=== PATIENT | male | born 1975 | race African-American/Black ===

== ENCOUNTER 2016-11-10 13:05 | Inpatient (IN) | payer OTHER ==
[~2016-11-10] VITALS: Ht 188 cm; Wt 92.1 kg
[~2016-11-10 13:05] MED LIST: ADVIL,NUPRIN,M200 MG PO; ALPRAZOLAM0.5 MG PO; AMLODIPINE BESY10 MG PO; AMOXICILLIN875 MG PO; APRESOLINE50 MG PO; ASPIR-LOW81 MG PO; ATENOLOL100 MG PO; ATORVASTATIN CA40 MG PO; AUGMENTIN875 MG PO; BENTYL10 MG PO; BENTYL20 MG PO; CARVEDILOL6.25 MG PO; CATAPRES-TTS 31 EACH TD; CENTRUM MEN'S1 EACH PO; CLEOCIN300 MG PO; CLONIDINE1 EAC2 TD; COLACE100 MG PO; DILAUDID4 MG PO; DONNATAL1 TABLET PO; DULOXETINE HCL30 MG PO; ENDOCET 5-3251 EACH PO; ERYTHROMYCIN250 M1 PO; ESGIC 50-325-41 EAC1 PO; FAMOTIDINE40 MG PO; FIORICET,ESG1 TABLET PO; FLAGYL500 MG PO; FLEXERIL10 MG PO; GABAPENTIN300 MG PO; GLIPIZIDE5 MG PO; GLUCOPHAGE500 MG PO; HUMALOG100 UNIT/2 SC; HYCODAN SYRUP480 ML PO; IBUPROFEN400 MG PO; IBUPROFEN800 MG PO; LEVEMIR FL100 UNIT/1 SC; LIDOCAINE20 MG/1 M5 PO; LISINOPRIL10 MG PO; LISINOPRIL20 MG PO; LISINOPRIL40 MG PO; LISINOPRIL5 MG PO; LOPRESSOR25 MG PO; LOPRESSOR50 MG PO; MEDROL DOSEPAK4 MG PO; METFORMIN HCL1000 MG PO; METFORMIN HCL500 MG PO; METOCLOPRAMIDE10 MG PO; MIRALAX17 GM PO; MOTRIN600 MG PO; MOTRIN800 MG PO; NAPROSYN500 MG PO; NICOTINE PATCH1 EAC2 TD; NORCO 7.5/321 TABLET PO; ONDANSETRON HCL8 MG PO; PANTOPRAZOLE SO40 MG PO; PEPCID40 MG PO; PERCOCET 5/31 TABLET PO; PHENERGAN25 MG PR; PLAVIX75 MG PO; PRAVASTATIN SOD40 MG PO; PROMETHAZINE HC25 M1 PO; PROMETHAZINE HC50 M1 PO; PROTONIX40 MG PO; PROVENTIL,2.5 MG/3 M IH; REGLAN10 MG PO; REGLAN5 MG PO; SERTRALINE HCL50 MG PO; TOPIRAMATE25 MG PO; TOUJEO SOL300 UNIT/1 SC; TRAMADOL HCL50 MG PO; TRIBENZOR 40-11 EAC1 PO; ULTRAM50 MG PO; VIAGRA25 MG PO; VIAGRA50 MG PO; VICODIN 5-3001 EACH PO; XANAX0.25 MG PO; XANAX0.5 MG PO; ZESTORETIC 20-1 EAC1 PO; ZESTRIL,PRINIVIL5 MG PO; ZITHROMAX Z-PA250 MG PO; ZOFRAN ODT4 MG PO; ZOFRAN4 MG PO
[2016-11-10 14:09] LABS: HEMATOCRIT 39.4 % (38.0-50.0); MCH 29.2 PG (29.0-34.0); MCV 91.2 FL (86-99); MEAN PLAT.VOLUME 10.9 uM^3 (9.0-12.4); PLATELET COUNT 180 K/uL (156-360); RBC DIS.WIDTH-CV 13.2 % (11.8-14.6); RBC DIS.WIDTH-SD 44.5 % (39-53); RED BLOOD COUNT 4.32 M/uL (4.00-5.50); WHITE BLOOD COUNT 17.1 K/uL (4.1-10.2)
[2016-11-10 14:19] LABS: CHLORIDE 109 mEq/L (99-109); POTASSIUM 4.6 mEq/L (3.7-5.4); SODIUM 141 mEq/L (136-147)
[2016-11-10 14:22] LABS: ANION GAP 13 MEQ/L (2-14)
[2016-11-10 14:26] LABS: UREA NITROGEN (BUN) 33 mg/dL (9-23)
[2016-11-10 14:31] LABS: GLUCOSE 407 mg/dL (70-99)
[2016-11-10 14:46] LABS: GFR ESTIMATE (CALCULATED) 45 mL/min/
[2016-11-10 14:47] LABS: CARBON DIOXIDE (BICARBONATE) 23.2 MEQ/L (20-31)
[2016-11-10 17:41] LABS: POINT-OF-CARE METER ID UU14100415
[2016-11-10] MEDS ORDERED: ATORVASTATIN CA80 MG PO (18:21)
[2016-11-10] MEDS ORDERED: VIAGRA50 MG PO (18:22)
[2016-11-10] MEDS ORDERED: LISINOPRIL10 MG PO (18:23)
[2016-11-10] MEDS ORDERED: METOCLOPRAMIDE10 MG PO (18:27)
[2016-11-10] MEDS ORDERED: TOPIRAMATE100 MG PO (18:32)
[2016-11-10 19:33] LABS: ADD MIUA? YES; BILIRUBIN NEGATIVE; BLOOD NEGATIVE; COLOR YELLOW ((YELLOW)); GLUCOSE (STRIP) >=500; KETONES NEGATIVE; LEUKOCYTES NEGATIVE; NITRITE NEGATIVE; PROTEIN (STRIP) 100; SPECIFIC GRAVITY 1.022 (1.000-1.030); UROBILINOGEN 0.2 MG/DL (0.2-1.0)
[2016-11-10 20:01] LABS: BACTERIA NONE SEEN /HPF; EPITHELIAL CELLS RARE /HPF; HYALINE CASTS 0-5 /LPF; MUCUS NONE SEEN /LPF; RED BLOOD CELLS 0-5 /HPF (0-5); UCUL ADDED? NO; WHITE BLOOD CELLS 0-5 /HPF (0-5)
[2016-11-10 20:19] LABS: ABS NEUTROPHIL COUNT 15.2; ANISOCYTOSIS 1+; BASOPHILS 0.9 %; BURR CELLS 2+; EOSINOPHIL ABS CT 0; LYMPHOCYTES 4.3 % (15.0-45.0); MYELOCYTES 0.9 %; PLAT.SUFFICIENCY ADEQUATE; POIKILOCYTOSIS 2+; SEG.NEUTROPHILS 88.7 % (46.0-76.0); SMUDGE CELLS 3.5
[2016-11-10 20:38] VITALS: BP 142/78
[2016-11-10 21:19] LABS: POINT-OF-CARE METER ID UU14188625
[2016-11-10 23:35] VITALS: BP 124/66
[2016-11-11 03:31] VITALS: BP 146/80
[2016-11-11 07:34] LABS: HEMATOCRIT 32.7 % (38.0-50.0); MCH 28.3 PG (29.0-34.0); MCHC 30.9 G/DL (30.0-36.0); MCV 91.6 FL (86-99); MEAN PLAT.VOLUME 11.2 uM^3 (9.0-12.4); PLATELET COUNT 160 K/uL (156-360); RBC DIS.WIDTH-CV 13.2 % (11.8-14.6); RBC DIS.WIDTH-SD 44.6 % (39-53); RED BLOOD COUNT 3.57 M/uL (4.00-5.50)
[2016-11-11 08:18] LABS: ANION GAP 8 MEQ/L (2-14); CHLORIDE 111 MEQ/L (99-109); POTASSIUM 4.1 MEQ/L (3.7-5.4); SAMPLE HEMOLYSIS CHECK 0; SAMPLE ICTERIC CHECK 0; SAMPLE LIPEMIA CHECK 0; SODIUM 142 MEQ/L (136-147)
[2016-11-11 08:23] LABS: GFR ESTIMATE (CALCULATED) > 59 mL/min/; UREA NITROGEN (BUN) 28 mg/dL (9-23)
[2016-11-11 08:24] VITALS: BP 170/93
[2016-11-11 08:24] LABS: GLUCOSE 159 mg/dL (70-99)
[2016-11-11 15:29] VITALS: BP 153/97
[2016-11-11 19:36] VITALS: BP 141/91
[2016-11-12 00:39] VITALS: BP 145/95
[2016-11-12 03:29] VITALS: BP 144/86
[2016-11-12 07:17] VITALS: BP 151/77
[2016-11-12 07:58] LABS: ANION GAP 11 MEQ/L (2-14); CHLORIDE 109 MEQ/L (99-109); GFR ESTIMATE (CALCULATED) > 59 mL/min/; GLUCOSE 193 mg/dL (70-99); POTASSIUM 4.5 MEQ/L (3.7-5.4); SAMPLE HEMOLYSIS CHECK 0; SAMPLE ICTERIC CHECK 0; SAMPLE LIPEMIA CHECK 0; SODIUM 141 MEQ/L (136-147); UREA NITROGEN (BUN) 24 mg/dL (9-23)
[2016-11-12 08:09] LABS: Estimated Average Glucose 295 mg/dL (70-123); HEMOGLOBIN A1c (GLYCOHEMOGLOB) 11.9 % HGB (Below 5.7)
[2016-11-12] MEDS ORDERED: TOPIRAMATE100 MG PO (09:49)
[2016-11-12 11:02] VITALS: BP 147/88
[2016-11-12 11:07] LABS: POINT-OF-CARE METER ID UU14174225
== END 2016-11-12 12:15 | disposition home or self-care (01) | DRG 78 ==
LOC: EME 13:05 → EDOF 19:04 → 5SOUTH 19:04 → EDOF 20:03 → 5SOUTH 20:23
PROVIDERS: Emergency Medicine; Hospitalist; Nurse Practitioner Adult Health
DX: I67.4 Hypertensive encephalopathy (principal); E87.2 Acidosis; I16.0 Hypertensive urgency; I12.9 Hypertensive chronic kidney disease with stage 1 through stage 4 chronic kidney disease, or unspecified chronic kidney disease; N18.3 Chronic kidney disease, stage 3 (moderate); E11.65 Type 2 diabetes mellitus with hyperglycemia; K31.84 Gastroparesis; E11.22 Type 2 diabetes mellitus with diabetic chronic kidney disease; F32.9 Major depressive disorder, single episode, unspecified; F41.9 Anxiety disorder, unspecified; E11.40 Type 2 diabetes mellitus with diabetic neuropathy, unspecified; F17.210 Nicotine dependence, cigarettes, uncomplicated
CPT/HCPCS: 70450; 70551; 71010; 80048; 81003; 82010; 82803; 82948; 83036; 85007; 85027; 93005; 99281; 99285; J1170; J1200; J1815; J1885; J2405; J2765; J7030

== ENCOUNTER 2017-01-10 19:16 | Observation (INO) | payer OTHER ==
[~2017-01-10] VITALS: Ht 188 cm; Wt 98.1 kg
[~2017-01-10 19:16] MED LIST changes: +ATORVASTATIN CA80 MG PO; +TOPIRAMATE100 MG PO
[2017-01-10 19:42] LABS: HEMATOCRIT 40.2 % (38.0-50.0); MCH 29.4 PG (29.0-34.0); MCHC 31.1 G/DL (30.0-36.0); MCV 94.6 FL (86-99); MEAN PLAT.VOLUME 11.1 uM^3 (9.0-12.4); PLATELET COUNT 212 K/uL (156-360); RBC DIS.WIDTH-CV 13.5 % (11.8-14.6); RED BLOOD COUNT 4.25 M/uL (4.00-5.50)
[2017-01-10 19:51] LABS: CHLORIDE 111 mEq/L (99-109); SODIUM 144 mEq/L (136-147)
[2017-01-10 19:53] LABS: GLUCOSE 363 mg/dL (70-99)
[2017-01-10 19:54] LABS: ANION GAP 18 MEQ/L (2-14); INTER. NORMALIZED RATIO 1.1; PROTHROMBIN TIME 11.4 (9.2-11.2); PTT 26.6 (25-32)
[2017-01-10 19:57] LABS: GFR ESTIMATE (CALCULATED) 45 mL/min/; UREA NITROGEN (BUN) 30 mg/dL (9-23)
[2017-01-10 20:02] LABS: TROP-I INTERPRETATION NEGATIVE; TROPONIN-I < 0.01 ng/mL (0.0-0.30)
[2017-01-10] MEDS ORDERED: ALPRAZOLAM0.5 MG PO (22:44)
[2017-01-10] MEDS ORDERED: PANTOPRAZOLE SO40 MG PO (22:47)
[2017-01-10] MEDS ORDERED: TOPIRAMATE200 MG PO (22:48)
[2017-01-10] MEDS ORDERED: SERTRALINE HCL50 MG PO (22:48)
[2017-01-10 23:38] LABS: CARBON DIOXIDE (BICARBONATE) 21.4 MEQ/L (20-31)
[2017-01-10 23:43] LABS: CHLORIDE 115 mEq/L (99-109); POTASSIUM 5.4 mEq/L (3.7-5.4); SODIUM 144 mEq/L (136-147)
[2017-01-10 23:44] LABS: MAGNESIUM 1.6 mg/dL (1.3-2.7)
[2017-01-10 23:46] LABS: GLUCOSE 271 mg/dL (70-99)
[2017-01-10 23:47] LABS: ANION GAP 12 MEQ/L (2-14)
[2017-01-10 23:48] LABS: TOTAL BILIRUBIN 0.2 mg/dL (0.0-1.0)
[2017-01-10 23:49] LABS: ALKALINE PHOSPHATASE 69 IU/L (3-129)
[2017-01-10 23:50] LABS: GFR ESTIMATE (CALCULATED) 47 mL/min/
[2017-01-10 23:51] LABS: UREA NITROGEN (BUN) 32 mg/dL (9-23)
[2017-01-10 23:52] LABS: POINT-OF-CARE METER ID UU13113702; POINT-OF-CARE USER ID 608261302
[2017-01-11 00:49] VITALS: BP 125/73
[2017-01-11 04:43] VITALS: BP 139/68
[2017-01-11 04:55] LABS: POINT-OF-CARE METER ID UU13113831
[2017-01-11 05:17] LABS: CARBON DIOXIDE (BICARBONATE) 22.3 MEQ/L (20-31)
[2017-01-11 05:28] LABS: CHLORIDE 117 mEq/L (99-109); POTASSIUM 4.4 mEq/L (3.7-5.4); SODIUM 145 mEq/L (136-147)
[2017-01-11 05:31] LABS: ANION GAP 8 MEQ/L (2-14)
[2017-01-11 05:32] LABS: TOTAL BILIRUBIN 0.2 mg/dL (0.0-1.0)
[2017-01-11 05:33] LABS: ALKALINE PHOSPHATASE 60 IU/L (3-129)
[2017-01-11 05:34] LABS: GFR ESTIMATE (CALCULATED) 47 mL/min/
[2017-01-11 05:35] LABS: UREA NITROGEN (BUN) 34 mg/dL (9-23)
[2017-01-11 05:40] LABS: GLUCOSE 108 mg/dL (70-99)
[2017-01-11 05:59] LABS: POINT-OF-CARE METER ID UU13113831
[2017-01-11 06:50] VITALS: BP 115/59
[2017-01-11 11:05] VITALS: BP 124/75
[2017-01-11 12:01] LABS: POINT-OF-CARE METER ID UU13113831
[2017-01-11 13:09] LABS: HEMATOCRIT 32.2 % (38.0-50.0); MCH 30.4 PG (29.0-34.0); MCHC 31.7 G/DL (30.0-36.0); MCV 96.1 FL (86-99); MEAN PLAT.VOLUME 11.2 uM^3 (9.0-12.4); PLATELET COUNT 150 K/uL (156-360); RBC DIS.WIDTH-CV 13.6 % (11.8-14.6); RBC DIS.WIDTH-SD 48.1 % (39-53)
[2017-01-11 13:11] LABS: RED BLOOD COUNT 3.35 M/uL (4.00-5.50); WHITE BLOOD COUNT 13.6 K/uL (4.1-10.2)
[2017-01-11 13:18] LABS: ADD MIUA? YES; BILIRUBIN NEGATIVE; BLOOD NEGATIVE; COLOR YELLOW ((YELLOW)); GLUCOSE (STRIP) 50; KETONES 5; LEUKOCYTES NEGATIVE; NITRITE NEGATIVE; PROTEIN (STRIP) 30; SPECIFIC GRAVITY 1.017 (1.000-1.030); UROBILINOGEN 0.2 MG/DL (0.2-1.0)
[2017-01-11 13:25] LABS: BACTERIA NONE SEEN /HPF; EPITHELIAL CELLS 1+ /HPF; MUCUS TRACE /LPF; RED BLOOD CELLS 0-5 /HPF (0-5); UCUL ADDED? NO
[2017-01-11] MEDS ORDERED: LEVEMIR100 UNIT/2 SC (13:40)
[2017-01-11] MEDS ORDERED: NOVOLOG 10100 UNITS/ SC (13:40)
[2017-01-12] MEDS ORDERED: TOUJEO SOL300 UNIT/1 SC (12:50)
[2017-01-12] MEDS ORDERED: ZOFRAN ODT8 MG PO (12:53)
[2017-01-12] MEDS ORDERED: FAMOTIDINE20 MG PO (12:53)
[2017-01-12] MEDS ORDERED: HUMALOG100 UNIT/1 SC (12:58)
== END 2017-01-11 14:49 | disposition home or self-care (01) ==
LOC: EME 19:16 → EDOF 22:55 → 5WEST 22:55
PROVIDERS: Emergency Medicine; Internal Medicine; Physician Assistant Medical; Student in an Organized Health Care Education/Training Program
DX: I67.4 Hypertensive encephalopathy (principal); N17.9 Acute kidney failure, unspecified; E87.5 Hyperkalemia; E11.65 Type 2 diabetes mellitus with hyperglycemia; G43.909 Migraine, unspecified, not intractable, without status migrainosus; Z86.73 Personal history of transient ischemic attack (TIA), and cerebral infarction without residual deficits; Z79.4 Long term (current) use of insulin; I69.328 Other speech and language deficits following cerebral infarction; I69.398 Other sequelae of cerebral infarction; R47.81 Slurred speech; R26.2 Difficulty in walking, not elsewhere classified; G93.89 Other specified disorders of brain; E11.43 Type 2 diabetes mellitus with diabetic autonomic (poly)neuropathy; K31.84 Gastroparesis; E11.40 Type 2 diabetes mellitus with diabetic neuropathy, unspecified; E11.22 Type 2 diabetes mellitus with diabetic chronic kidney disease; I12.9 Hypertensive chronic kidney disease with stage 1 through stage 4 chronic kidney disease, or unspecified chronic kidney disease; N18.9 Chronic kidney disease, unspecified; Z91.14 Patient's other noncompliance with medication regimen; E87.2 Acidosis; E83.42 Hypomagnesemia; K21.9 Gastro-esophageal reflux disease without esophagitis
CPT/HCPCS: 70450; 71010; 80048; 80053; 81003; 82010; 82803; 82948; 83735; 84484; 85027; 85610; 85730; 93005; 99281; 99285; G0378; J0780; J1200; J1650; J1815; J1885; J2405; J7030

== ENCOUNTER 2017-01-12 07:56 | Observation (INO) | payer OTHER ==
[~2017-01-12] VITALS: Ht 188 cm; Wt 91.9 kg
[~2017-01-12 07:56] MED LIST changes: +LEVEMIR100 UNIT/2 SC; +NOVOLOG 10100 UNITS/ SC; +TOPIRAMATE200 MG PO
[2017-01-12 08:34] LABS: BASOPHIL COUNT 0.1 K/uL (0-0.1); EOSINOPHIL (%) 1.2 % (0-5); EOSINOPHIL COUNT 0.2 K/uL (0-0.3); HEMATOCRIT 39.1 % (38.0-50.0); IMMATURE GRANULOCYTE (%) 0.6 % (0.0-0.7); IMMATURE GRANULOCYTE COUNT 0.1 K/uL; INSTRUMENT ABS NEUTROPHIL CT 12.3 K/uL; LYMPHOCYTE COUNT 2.6 K/uL (1.0-2.8); MCHC 30.7 G/DL (30.0-36.0); MCV 94.4 FL (86-99); MEAN PLAT.VOLUME 10.9 uM^3 (9.0-12.4); MONOCYTE (%) 6.7 % (3-12); MONOCYTE COUNT 1.1 K/uL (0-0.8); NEUTROPHIL (%) 75.2 % (45-76); NEUTROPHIL COUNT 12.3 K/uL (1.8-6.4); PLATELET COUNT 177 K/uL (156-360); RBC DIS.WIDTH-CV 13.4 % (11.8-14.6); RBC DIS.WIDTH-SD 46.6 % (39-53); RED BLOOD COUNT 4.14 M/uL (4.00-5.50); WHITE BLOOD COUNT 16.3 K/uL (4.1-10.2)
[2017-01-12 08:42] LABS: CHLORIDE 114 mEq/L (99-109); POTASSIUM 4.5 mEq/L (3.7-5.4); SODIUM 144 mEq/L (136-147)
[2017-01-12 08:44] LABS: INTER. NORMALIZED RATIO 1.1; PROTHROMBIN TIME 11.4 (9.2-11.2); PTT 27.8 (25-32)
[2017-01-12 08:45] LABS: ANION GAP 13 MEQ/L (2-14); GLUCOSE 183 mg/dL (70-99)
[2017-01-12 08:48] LABS: GFR ESTIMATE (CALCULATED) 50 mL/min/
[2017-01-12 08:49] LABS: UREA NITROGEN (BUN) 23 mg/dL (9-23)
[2017-01-12 08:54] LABS: TROP-I INTERPRETATION NEGATIVE; TROPONIN-I 0.01 ng/mL (0.0-0.30)
[2017-01-12] MEDS ORDERED: TOUJEO SOL300 UNIT/1 SC (12:50)
[2017-01-12] MEDS ORDERED: ZOFRAN ODT8 MG PO (12:53)
[2017-01-12] MEDS ORDERED: FAMOTIDINE20 MG PO (12:53)
[2017-01-12] MEDS ORDERED: HUMALOG100 UNIT/1 SC (12:58)
[2017-01-12 13:54] VITALS: BP 159/91
[2017-01-12 15:15] LABS: TROP-I INTERPRETATION NEGATIVE; TROPONIN-I < 0.01 ng/mL (0.0-0.30)
[2017-01-12 16:13] VITALS: BP 129/80
[2017-01-12 16:44] LABS: POINT-OF-CARE METER ID UU14162513
[2017-01-12 21:26] LABS: POINT-OF-CARE METER ID UU14162513
[2017-01-12 21:52] LABS: TROP-I INTERPRETATION NEGATIVE; TROPONIN-I < 0.01 ng/mL (0.0-0.30)
[2017-01-13] VITALS (7 sets, daily range): BP systolic 124–178; BP diastolic 72–107
[2017-01-13 06:36] LABS: ANION GAP 12 MEQ/L (2-14); CHLORIDE 111 MEQ/L (99-109); GFR ESTIMATE (CALCULATED) > 59 mL/min/; GLUCOSE 145 mg/dL (70-99); POTASSIUM 3.9 MEQ/L (3.7-5.4); SAMPLE HEMOLYSIS CHECK 0; SAMPLE ICTERIC CHECK 0; SAMPLE LIPEMIA CHECK 0; SODIUM 141 MEQ/L (136-147); UREA NITROGEN (BUN) 25 mg/dL (9-23)
[2017-01-13 07:54] LABS: BASOPHIL COUNT 0.1 K/uL (0-0.1); EOSINOPHIL (%) 0.7 % (0-5); EOSINOPHIL COUNT 0.1 K/uL (0-0.3); HEMATOCRIT 31.9 % (38.0-50.0); IMMATURE GRANULOCYTE (%) 0.4 % (0.0-0.7); IMMATURE GRANULOCYTE COUNT 0.1 K/uL; INSTRUMENT ABS NEUTROPHIL CT 14.4 K/uL; LYMPHOCYTE COUNT 2.4 K/uL (1.0-2.8); MCH 30.1 PG (29.0-34.0); MCHC 31.7 G/DL (30.0-36.0); MCV 95.2 FL (86-99); MEAN PLAT.VOLUME 11.4 uM^3 (9.0-12.4); MONOCYTE (%) 7.3 % (3-12); MONOCYTE COUNT 1.3 K/uL (0-0.8); NEUTROPHIL (%) 78.1 % (45-76); NEUTROPHIL COUNT 14.4 K/uL (1.8-6.4); PLATELET COUNT 161 K/uL (156-360); RBC DIS.WIDTH-CV 13.4 % (11.8-14.6); RBC DIS.WIDTH-SD 46.8 % (39-53); RED BLOOD COUNT 3.35 M/uL (4.00-5.50); WHITE BLOOD COUNT 18.4 K/uL (4.1-10.2)
[2017-01-13 17:16] LABS: POINT-OF-CARE METER ID UU14162513
[2017-01-14 03:47] VITALS: BP 134/79
[2017-01-14 04:41] LABS: MCH 29.6 PG (29.0-34.0); MCHC 31.9 G/DL (30.0-36.0); MCV 92.8 FL (86-99); MEAN PLAT.VOLUME 10.7 uM^3 (9.0-12.4); PLATELET COUNT 146 K/uL (156-360); RBC DIS.WIDTH-SD 44.3 % (39-53); RED BLOOD COUNT 3.34 M/uL (4.00-5.50)
[2017-01-14 04:49] LABS: CHLORIDE 112 mEq/L (99-109); POTASSIUM 3.5 mEq/L (3.7-5.4); SODIUM 140 mEq/L (136-147)
[2017-01-14 04:52] LABS: ANION GAP 9 MEQ/L (2-14)
[2017-01-14 04:55] LABS: GFR ESTIMATE (CALCULATED) > 59 mL/min/; UREA NITROGEN (BUN) 23 mg/dL (9-23)
[2017-01-14 04:59] LABS: GLUCOSE 104 mg/dL (70-99)
[2017-01-14 07:30] VITALS: BP 165/103
[2017-01-14 07:37] LABS: POINT-OF-CARE METER ID UU13113700
[2017-01-14 11:09] VITALS: BP 141/96
[2017-01-14] MEDS ORDERED: APRESOLINE25 MG PO (11:25)
== END 2017-01-14 12:04 | disposition home or self-care (01) ==
LOC: EME 07:56 → EDOF 11:57 → 5WEST 11:57 → EDOF 11:57 → 5WEST 13:37
PROVIDERS: Emergency Medicine; Internal Medicine; Nurse Practitioner Adult Health; Student in an Organized Health Care Education/Training Program
DX: I16.0 Hypertensive urgency (principal); I13.0 Hypertensive heart and chronic kidney disease with heart failure and stage 1 through stage 4 chronic kidney disease, or unspecified chronic kidney disease; E11.22 Type 2 diabetes mellitus with diabetic chronic kidney disease; N18.3 Chronic kidney disease, stage 3 (moderate); I50.9 Heart failure, unspecified; E11.43 Type 2 diabetes mellitus with diabetic autonomic (poly)neuropathy; K31.84 Gastroparesis; E11.65 Type 2 diabetes mellitus with hyperglycemia; Z91.14 Patient's other noncompliance with medication regimen; E78.5 Hyperlipidemia, unspecified; G43.909 Migraine, unspecified, not intractable, without status migrainosus; F41.9 Anxiety disorder, unspecified; F32.9 Major depressive disorder, single episode, unspecified; F17.200 Nicotine dependence, unspecified, uncomplicated; F12.90 Cannabis use, unspecified, uncomplicated; I69.392 Facial weakness following cerebral infarction; I69.351 Hemiplegia and hemiparesis following cerebral infarction affecting right dominant side; D72.829 Elevated white blood cell count, unspecified
CPT/HCPCS: 70551; 71010; 80048; 82948; 84484; 85025; 85027; 85610; 85730; 93005; 99281; 99285; G0378; J0360; J1644; J1815; J2270; J2405; J7030; S0028

== ENCOUNTER 2017-03-07 09:56 | Emergency (ER) | payer OTHER ==
[~2017-03-07 09:56] MED LIST changes: +APRESOLINE25 MG PO; +FAMOTIDINE20 MG PO; +HUMALOG100 UNIT/1 SC; +ZOFRAN ODT8 MG PO
== END 2017-03-07 10:20 | disposition left against medical advice (07) ==
LOC: EME 09:56
DX: R51 Headache (principal)

== ENCOUNTER 2017-04-27 20:26 | Inpatient (IN) | payer OTHER ==
[~2017-04-27] VITALS: Ht 188 cm; Wt 89.2 kg
[~2017-04-27 20:26] MED LIST changes: -GABAPENTIN300 MG PO; +GABAPENTIN600 MG PO
[2017-04-27 21:39] LABS: HEMATOCRIT 36.5 % (38.0-50.0); MCHC 31.5 G/DL (30.0-36.0); MCV 91.9 FL (86-99); MEAN PLAT.VOLUME 10.7 uM^3 (9.0-12.4); PLATELET COUNT 204 K/uL (156-360); RBC DIS.WIDTH-CV 13.9 % (11.8-14.6); RBC DIS.WIDTH-SD 47.3 % (39-53); RED BLOOD COUNT 3.97 M/uL (4.00-5.50); WHITE BLOOD COUNT 18.3 K/uL (4.1-10.2)
[2017-04-27 21:49] LABS: CHLORIDE 113 mEq/L (99-109); POTASSIUM 3.8 mEq/L (3.7-5.4); SODIUM 147 mEq/L (136-147)
[2017-04-27 21:51] LABS: GLUCOSE 144 mg/dL (70-99)
[2017-04-27 21:52] LABS: ANION GAP 10 MEQ/L (2-14)
[2017-04-27 21:53] LABS: TOTAL BILIRUBIN 0.3 mg/dL (0.0-1.0)
[2017-04-27 21:54] LABS: ALKALINE PHOSPHATASE 73 IU/L (3-129)
[2017-04-27 21:55] LABS: GFR ESTIMATE (CALCULATED) 57 mL/min/
[2017-04-27 21:56] LABS: UREA NITROGEN (BUN) 32 mg/dL (9-23)
[2017-04-27 21:58] LABS: LIPASE 19 U/L (1.0-51.0)
[2017-04-28 01:05] LABS: ADD MIUA? YES; BILIRUBIN NEGATIVE; BLOOD NEGATIVE; COLOR YELLOW ((YELLOW)); GLUCOSE (STRIP) NEGATIVE; KETONES 5; LEUKOCYTES NEGATIVE; NITRITE NEGATIVE; PROTEIN (STRIP) 100; UROBILINOGEN 0.2 MG/DL (0.2-1.0)
[2017-04-28 01:12] LABS: BACTERIA NONE SEEN /HPF; EPITHELIAL CELLS RARE /HPF; MUCUS TRACE /LPF; RED BLOOD CELLS 0-5 /HPF (0-5); UCUL ADDED? NO; WHITE BLOOD CELLS 0-5 /HPF (0-5)
[2017-04-28 01:58] LABS: SPECIFIC GRAVITY 1.063 (1.000-1.030)
[2017-04-28 05:38] VITALS: BP 146/70
[2017-04-28] MEDS ORDERED: APRESOLINE10 MG PO (08:33)
[2017-04-28] MEDS ORDERED: XANAX1 MG PO (08:39)
[2017-04-28] MEDS ORDERED: BASAGLAR K100 UNIT/1 SC (08:43)
[2017-04-28] MEDS ORDERED: REGLAN10 MG PO (08:45)
[2017-04-28 11:35] VITALS: BP 140/87
[2017-04-28 16:02] VITALS: BP 173/84
[2017-04-28 17:37] LABS: POINT-OF-CARE METER ID UU13113700
[2017-04-28 19:38] LABS: POINT-OF-CARE METER ID UU13113700
[2017-04-28 19:40] LABS: GLUCOSE 185 mg/dL (70-99)
[2017-04-29] VITALS (8 sets, daily range): BP systolic 116–166; BP diastolic 75–106
[2017-04-29 06:14] LABS: EOSINOPHIL (%) 0.9 % (0-5); EOSINOPHIL COUNT 0.1 K/uL (0-0.3); IMMATURE GRANULOCYTE (%) 0.2 % (0.0-0.7); INSTRUMENT ABS NEUTROPHIL CT 10.2 K/uL; LYMPHOCYTE COUNT 2.3 K/uL (1.0-2.8); MCHC 31.2 G/DL (30.0-36.0); MCV 93.2 FL (86-99); MEAN PLAT.VOLUME 10.7 uM^3 (9.0-12.4); MONOCYTE (%) 8.4 % (3-12); MONOCYTE COUNT 1.2 K/uL (0-0.8); NEUTROPHIL (%) 73.6 % (45-76); NEUTROPHIL COUNT 10.2 K/uL (1.8-6.4); PLATELET COUNT 173 K/uL (156-360); RBC DIS.WIDTH-CV 13.6 % (11.8-14.6); RBC DIS.WIDTH-SD 46.4 % (39-53); RED BLOOD COUNT 3.65 M/uL (4.00-5.50); WHITE BLOOD COUNT 13.8 K/uL (4.1-10.2)
[2017-04-29 06:33] LABS: ANION GAP 10 MEQ/L (2-14); CHLORIDE 112 MEQ/L (99-109); POTASSIUM 3.6 MEQ/L (3.7-5.4); SAMPLE HEMOLYSIS CHECK 1; SAMPLE ICTERIC CHECK 0; SAMPLE LIPEMIA CHECK 0; SODIUM 143 MEQ/L (136-147)
[2017-04-29 06:38] LABS: GFR ESTIMATE (CALCULATED) > 59 mL/min/; UREA NITROGEN (BUN) 14 mg/dL (9-23)
[2017-04-29 06:40] LABS: GLUCOSE 109 mg/dL (70-99)
[2017-04-29 08:20] LABS: POINT-OF-CARE METER ID UU13113700
[2017-04-29 10:27] LABS: POINT-OF-CARE METER ID UU13113700
[2017-04-29 12:38] LABS: POINT-OF-CARE METER ID UU13113700
[2017-04-29 14:14] LABS: POINT-OF-CARE METER ID UU13113700
[2017-04-29 17:11] LABS: POINT-OF-CARE METER ID UU13113700
[2017-04-29 21:24] LABS: POINT-OF-CARE METER ID UU13113700
[2017-04-30] VITALS (8 sets, daily range): BP systolic 125–180; BP diastolic 75–113
[2017-04-30 06:14] LABS: POINT-OF-CARE METER ID UU14162513
[2017-04-30 06:52] LABS: POINT-OF-CARE METER ID UU14162513
[2017-04-30 16:33] LABS: POINT-OF-CARE METER ID UU14162513
[2017-04-30 22:04] LABS: POINT-OF-CARE METER ID UU13113700
[2017-04-30 23:53] LABS: POINT-OF-CARE METER ID UU13113700
[2017-05-01 02:23] LABS: POINT-OF-CARE METER ID UU14162513
[2017-05-01 04:21] VITALS: BP 129/80
[2017-05-01 06:07] LABS: POINT-OF-CARE METER ID UU13113700
[2017-05-01 07:42] VITALS: BP 160/102
[2017-05-01 10:21] LABS: POINT-OF-CARE METER ID UU13113700
[2017-05-01] MEDS ORDERED: E.E.S. SUS200 MG/5 M PO (10:45)
[2017-05-01] MEDS ORDERED: LEVEMIR FL100 UNIT/1 SC ×2 (10:52→10:53)
[2017-05-01] MEDS ORDERED: DRONABINOL2.5 MG PO (10:53)
[2017-05-01] MEDS ORDERED: LEVEMIR100 UNIT/2 SC ×2 (13:52)
[2017-05-02] MEDS ORDERED: E.E.S. SUS200 MG/5 M PO (12:49)
[2017-05-02] MEDS ORDERED: MARINOL2.5 M1 PO (12:52)
[2017-05-02] MEDS ORDERED: LEVEMIR100 UNIT/2 SC (12:54)
[2017-05-02] MEDS ORDERED: BASAGLAR K100 UNIT/1 SC (12:57)
== END 2017-05-01 12:58 | disposition home health service (06) | DRG 392 ==
LOC: RME 20:26 → EME 20:26 → EDOF 04-28 03:40 → 5WEST 04-28 03:40 → EDOF 04-28 03:40 → ENRESERV 04-28 03:41 → 5WEST 04-28 05:13 → CANRESERV 04-29 11:19 → ENRESERV 04-29 11:19 → CANRESERV 04-29 11:20 → ENRESERV 04-29 11:20 → 5WEST 05-01 12:58
PROVIDERS: Hospitalist; Physician Assistant Medical
DX: K31.84 Gastroparesis (principal); E11.22 Type 2 diabetes mellitus with diabetic chronic kidney disease; E11.42 Type 2 diabetes mellitus with diabetic polyneuropathy; I12.9 Hypertensive chronic kidney disease with stage 1 through stage 4 chronic kidney disease, or unspecified chronic kidney disease; N18.3 Chronic kidney disease, stage 3 (moderate); K21.9 Gastro-esophageal reflux disease without esophagitis; D72.829 Elevated white blood cell count, unspecified; F17.210 Nicotine dependence, cigarettes, uncomplicated; F12.90 Cannabis use, unspecified, uncomplicated; Z86.73 Personal history of transient ischemic attack (TIA), and cerebral infarction without residual deficits; I70.90 Unspecified atherosclerosis; R11.2 Nausea with vomiting, unspecified; Z79.4 Long term (current) use of insulin; Z79.82 Long term (current) use of aspirin; Z79.899 Other long term (current) drug therapy; E78.5 Hyperlipidemia, unspecified; E11.43 Type 2 diabetes mellitus with diabetic autonomic (poly)neuropathy; Z80.9 Family history of malignant neoplasm, unspecified; Z82.3 Family history of stroke; Z83.3 Family history of diabetes mellitus
CPT/HCPCS: 71010; 74177; 80048; 80053; 81003; 82947; 82948; 83690; 85025; 85027; 87040; 99281; 99285; G0378; J1630; J1650; J2270; J2405; J2765; J7030; J7042; Q0167; S0028

== ENCOUNTER 2017-05-02 09:16 | Observation (INO) | payer OTHER ==
[~2017-05-02] VITALS: Ht 188 cm; Wt 90.9 kg
[~2017-05-02 09:16] MED LIST changes: +APRESOLINE10 MG PO; +BASAGLAR K100 UNIT/1 SC; +DRONABINOL2.5 MG PO; +E.E.S. SUS200 MG/5 M PO; +XANAX1 MG PO
[2017-05-02 10:05] LABS: BASOPHIL COUNT 0.1 K/uL (0-0.1); EOSINOPHIL (%) 1.8 % (0-5); EOSINOPHIL COUNT 0.4 K/uL (0-0.3); HEMATOCRIT 39.3 % (38.0-50.0); IMMATURE GRANULOCYTE (%) 0.5 % (0.0-0.7); IMMATURE GRANULOCYTE COUNT 0.1 K/uL; INSTRUMENT ABS NEUTROPHIL CT 16.7 K/uL; LYMPHOCYTE COUNT 1.6 K/uL (1.0-2.8); MCH 29.1 PG (29.0-34.0); MCHC 31.3 G/DL (30.0-36.0); MCV 92.9 FL (86-99); MEAN PLAT.VOLUME 10.6 uM^3 (9.0-12.4); MONOCYTE (%) 5.3 % (3-12); MONOCYTE COUNT 1.1 K/uL (0-0.8); NEUTROPHIL COUNT 16.7 K/uL (1.8-6.4); PLATELET COUNT 208 K/uL (156-360); RBC DIS.WIDTH-CV 13.5 % (11.8-14.6); RED BLOOD COUNT 4.23 M/uL (4.00-5.50); WHITE BLOOD COUNT 19.9 K/uL (4.1-10.2)
[2017-05-02 10:17] LABS: CHLORIDE 111 mEq/L (99-109)
[2017-05-02 10:18] LABS: SODIUM 145 mEq/L (136-147)
[2017-05-02 10:20] LABS: GLUCOSE 286 mg/dL (70-99)
[2017-05-02 10:21] LABS: ANION GAP 10 MEQ/L (2-14)
[2017-05-02 10:22] LABS: TOTAL BILIRUBIN 0.3 mg/dL (0.0-1.0)
[2017-05-02 10:23] LABS: ALKALINE PHOSPHATASE 83 IU/L (3-129); GFR ESTIMATE (CALCULATED) 57 mL/min/
[2017-05-02 10:25] LABS: UREA NITROGEN (BUN) 20 mg/dL (9-23)
[2017-05-02 10:27] LABS: LIPASE 99 U/L (1.0-51.0)
[2017-05-02 12:48] LABS: ADD MIUA? YES; BILIRUBIN NEGATIVE; BLOOD NEGATIVE; COLOR YELLOW ((YELLOW)); GLUCOSE (STRIP) >=500; KETONES NEGATIVE; LEUKOCYTES NEGATIVE; NITRITE NEGATIVE; PROTEIN (STRIP) 100; SPECIFIC GRAVITY 1.014 (1.000-1.030)
[2017-05-02] MEDS ORDERED: E.E.S. SUS200 MG/5 M PO (12:49)
[2017-05-02 12:51] LABS: BACTERIA RARE /HPF; EPITHELIAL CELLS RARE /HPF; MUCUS NONE SEEN /LPF; RED BLOOD CELLS 0-5 /HPF (0-5); WHITE BLOOD CELLS 0-5 /HPF (0-5)
[2017-05-02] MEDS ORDERED: MARINOL2.5 M1 PO (12:52)
[2017-05-02] MEDS ORDERED: LEVEMIR100 UNIT/2 SC (12:54)
[2017-05-02] MEDS ORDERED: BASAGLAR K100 UNIT/1 SC (12:57)
[2017-05-02 14:24] VITALS: BP 180/95
[2017-05-02 17:34] LABS: POINT-OF-CARE METER ID UU13113700
[2017-05-02 21:15] VITALS: BP 138/94
[2017-05-02 21:42] LABS: POINT-OF-CARE METER ID UU14162513
[2017-05-02 23:41] VITALS: BP 175/99
[2017-05-03 03:50] VITALS: BP 135/81
[2017-05-03 06:09] LABS: ANION GAP 7 MEQ/L (2-14); CHLORIDE 114 MEQ/L (99-109); GFR ESTIMATE (CALCULATED) > 59 mL/min/; GLUCOSE 145 mg/dL (70-99); POTASSIUM 3.7 MEQ/L (3.7-5.4); SAMPLE HEMOLYSIS CHECK 0; SAMPLE ICTERIC CHECK 0; SAMPLE LIPEMIA CHECK 0; SODIUM 144 MEQ/L (136-147); UREA NITROGEN (BUN) 17 mg/dL (9-23)
[2017-05-03 07:50] LABS: POINT-OF-CARE METER ID UU14162513
[2017-05-03 08:40] VITALS: BP 191/107
[2017-05-03 10:10] VITALS: BP 189/99
[2017-05-03 11:00] VITALS: BP 159/92
== END 2017-05-03 12:18 | disposition home or self-care (01) ==
LOC: EME 09:16 → EDOF 13:08 → 5WEST 13:08 → ENRESERV 13:11 → EDOF 13:14 → ENRESERV 13:30 → 5WEST 14:20
PROVIDERS: Emergency Medicine; Internal Medicine
DX: E11.43 Type 2 diabetes mellitus with diabetic autonomic (poly)neuropathy (principal); K31.84 Gastroparesis; N17.9 Acute kidney failure, unspecified; E86.0 Dehydration; I16.0 Hypertensive urgency; R10.32 Left lower quadrant pain; I12.9 Hypertensive chronic kidney disease with stage 1 through stage 4 chronic kidney disease, or unspecified chronic kidney disease; E11.22 Type 2 diabetes mellitus with diabetic chronic kidney disease; N18.3 Chronic kidney disease, stage 3 (moderate); Z79.4 Long term (current) use of insulin; Z86.73 Personal history of transient ischemic attack (TIA), and cerebral infarction without residual deficits; F41.9 Anxiety disorder, unspecified; E78.5 Hyperlipidemia, unspecified; F17.200 Nicotine dependence, unspecified, uncomplicated; F12.90 Cannabis use, unspecified, uncomplicated; Z82.3 Family history of stroke; Z80.9 Family history of malignant neoplasm, unspecified
CPT/HCPCS: 74176; 80048; 80053; 81003; 82948; 83690; 85025; 99202; 99281; 99285; G0378; J0360; J1644; J2270; J2405; J3010; J7030; Q0167

== ENCOUNTER 2017-06-04 08:12 | Inpatient (IN) | payer OTHER ==
[~2017-06-04] VITALS: Ht 177.8 cm; Wt 67.3 kg
[~2017-06-04 08:12] MED LIST changes: +MARINOL2.5 M1 PO; +NORVASC5 MG PO
[2017-06-04 09:13] LABS: HEMATOCRIT 37.8 % (38.0-50.0); MCH 29.6 PG (29.0-34.0); MCHC 31.2 G/DL (30.0-36.0); MCV 94.7 FL (86-99); MEAN PLAT.VOLUME 11.1 uM^3 (9.0-12.4); PLATELET COUNT 190 K/uL (156-360); RBC DIS.WIDTH-CV 14.1 % (11.8-14.6); RED BLOOD COUNT 3.99 M/uL (4.00-5.50)
[2017-06-04 09:25] LABS: CHLORIDE 110 mEq/L (99-109); POTASSIUM 4.3 mEq/L (3.7-5.4); SODIUM 144 mEq/L (136-147)
[2017-06-04 09:28] LABS: GLUCOSE 385 mg/dL (70-99)
[2017-06-04 09:29] LABS: ANION GAP 14 MEQ/L (2-14); TOTAL BILIRUBIN 0.3 mg/dL (0.0-1.0)
[2017-06-04 09:31] LABS: ALKALINE PHOSPHATASE 78 IU/L (3-129); GFR ESTIMATE (CALCULATED) 50 mL/min/
[2017-06-04 09:32] LABS: UREA NITROGEN (BUN) 36 mg/dL (9-23)
[2017-06-04 09:35] LABS: LIPASE 21 U/L (1.0-51.0)
[2017-06-04 10:27] LABS: ADD MIUA? YES; BILIRUBIN NEGATIVE; BLOOD NEGATIVE; COLOR YELLOW ((YELLOW)); GLUCOSE (STRIP) >=500; KETONES 20; LEUKOCYTES NEGATIVE; NITRITE NEGATIVE; PROTEIN (STRIP) 100; SPECIFIC GRAVITY 1.025 (1.000-1.030); UROBILINOGEN 0.2 MG/DL (0.2-1.0)
[2017-06-04 10:29] LABS: BACTERIA NONE SEEN /HPF; EPITHELIAL CELLS RARE /HPF; MUCUS NONE SEEN /LPF; RED BLOOD CELLS 0-5 /HPF (0-5); UCUL ADDED? NO; WHITE BLOOD CELLS 0-5 /HPF (0-5)
[2017-06-04] MEDS ORDERED: LEVEMIR100 UNIT/2 SC (13:22)
[2017-06-04 15:42] LABS: POINT-OF-CARE METER ID UU13113725
[2017-06-04 15:45] VITALS: BP 181/91
[2017-06-04 19:37] LABS: HEMATOCRIT 32.9 % (38.0-50.0); MCV 95.1 FL (86-99)
[2017-06-04 22:52] VITALS: BP 156/82
[2017-06-04 23:51] LABS: POINT-OF-CARE METER ID UU13113774
[2017-06-05 05:56] LABS: POINT-OF-CARE METER ID UU13113774
[2017-06-05 06:25] LABS: HEMATOCRIT 33.2 % (38.0-50.0); MCV 95.7 FL (86-99)
[2017-06-05 06:45] LABS: ANION GAP 11 MEQ/L (2-14); CHLORIDE 114 MEQ/L (99-109); POTASSIUM 3.8 MEQ/L (3.7-5.4); SAMPLE HEMOLYSIS CHECK 0; SAMPLE ICTERIC CHECK 0; SAMPLE LIPEMIA CHECK 0; SODIUM 144 MEQ/L (136-147)
[2017-06-05 06:50] LABS: GFR ESTIMATE (CALCULATED) > 59 mL/min/; UREA NITROGEN (BUN) 26 mg/dL (9-23)
[2017-06-05 06:51] LABS: GLUCOSE 143 mg/dL (70-99)
[2017-06-05 07:21] VITALS: BP 162/100
[2017-06-05 11:33] LABS: POINT-OF-CARE METER ID UU13113774
[2017-06-05 16:21] VITALS: BP 170/79
[2017-06-05 17:52] LABS: POINT-OF-CARE METER ID UU13113725
[2017-06-05 19:43] LABS: HEMATOCRIT 32.2 % (38.0-50.0); MCV 95.3 FL (86-99)
[2017-06-05 21:41] VITALS: BP 159/88
[2017-06-05 23:46] LABS: POINT-OF-CARE METER ID UU13113774
[2017-06-06 01:46] VITALS: BP 141/83
[2017-06-06 06:16] LABS: POINT-OF-CARE METER ID UU13113725; POINT-OF-CARE USER ID 611181321
[2017-06-06 06:32] LABS: EOSINOPHIL (%) 1.8 % (0-5); EOSINOPHIL COUNT 0.2 K/uL (0-0.3); HEMATOCRIT 31.5 % (38.0-50.0); IMMATURE GRANULOCYTE (%) 0.4 % (0.0-0.7); INSTRUMENT ABS NEUTROPHIL CT 6.5 K/uL; LYMPHOCYTE COUNT 3.1 K/uL (1.0-2.8); MCH 30.1 PG (29.0-34.0); MCHC 31.4 G/DL (30.0-36.0); MCV 95.7 FL (86-99); MONOCYTE (%) 8.5 % (3-12); MONOCYTE COUNT 0.9 K/uL (0-0.8); NEUTROPHIL (%) 60.4 % (45-76); NEUTROPHIL COUNT 6.5 K/uL (1.8-6.4); PLATELET COUNT 161 K/uL (156-360); RBC DIS.WIDTH-CV 13.8 % (11.8-14.6); RED BLOOD COUNT 3.29 M/uL (4.00-5.50); WHITE BLOOD COUNT 10.8 K/uL (4.1-10.2)
[2017-06-06 07:44] VITALS: BP 139/94
[2017-06-06] MEDS ORDERED: REGLAN10 MG PO (11:37)
[2017-06-06] MEDS ORDERED: ZOFRAN ODT8 MG PO (11:38)
[2017-06-06] MEDS ORDERED: NICOTINE PATCH1 EAC2 TD (11:39)
[2017-06-06 12:08] LABS: POINT-OF-CARE METER ID UU13113774
== END 2017-06-06 13:49 | disposition home or self-care (01) | DRG 370 ==
LOC: EME 08:12 → 5EAST 12:56 → EDOF 12:56 → ENRESERV 12:57 → EDOF 13:13 → ENRESERV 13:28 → 5EAST 14:18 → ENPENDDIS 06-06 → 5EAST 06-06 13:49
PROVIDERS: Emergency Medicine; Hospitalist; Internal Medicine Gastroenterology
DX: K22.6 Gastro-esophageal laceration-hemorrhage syndrome (principal); K31.84 Gastroparesis; N18.3 Chronic kidney disease, stage 3 (moderate); E11.22 Type 2 diabetes mellitus with diabetic chronic kidney disease; E11.43 Type 2 diabetes mellitus with diabetic autonomic (poly)neuropathy; I12.9 Hypertensive chronic kidney disease with stage 1 through stage 4 chronic kidney disease, or unspecified chronic kidney disease; E78.5 Hyperlipidemia, unspecified; K21.9 Gastro-esophageal reflux disease without esophagitis; F17.210 Nicotine dependence, cigarettes, uncomplicated; G43.909 Migraine, unspecified, not intractable, without status migrainosus; Z86.73 Personal history of transient ischemic attack (TIA), and cerebral infarction without residual deficits; Z79.4 Long term (current) use of insulin; Z83.3 Family history of diabetes mellitus
CPT/HCPCS: 70450; 74176; 80048; 80053; 81003; 82948; 83690; 85014; 85018; 85025; 85027; 93005; 99281; 99285; C9113; J0360; J1650; J1815; J2270; J2405; J2765; J7030; Q0167

== ENCOUNTER 2017-06-16 21:09 | Emergency (ER) | payer OTHER ==
[~2017-06-16] VITALS: Ht 188 cm; Wt 88.3 kg
[2017-06-17] MEDS ORDERED: ULTRAM50 MG PO (00:07)
[2017-06-17 00:26] VITALS: BP 125/78
== END 2017-06-17 00:28 | disposition home or self-care (01) ==
LOC: EME 21:09
DX: S16.1XXA Strain of muscle, fascia and tendon at neck level, initial encounter (principal); S40.012A Contusion of left shoulder, initial encounter; R51 Headache; V49.50XA Passenger injured in collision with unspecified motor vehicles in traffic accident, initial encounter; Y92.410 Unspecified street and highway as the place of occurrence of the external cause; G93.89 Other specified disorders of brain; I10 Essential (primary) hypertension; E11.9 Type 2 diabetes mellitus without complications; Z79.4 Long term (current) use of insulin; Z79.02 Long term (current) use of antithrombotics/antiplatelets; Z86.73 Personal history of transient ischemic attack (TIA), and cerebral infarction without residual deficits; F17.200 Nicotine dependence, unspecified, uncomplicated
CPT/HCPCS: 70450; 72040; 73030; 99281; 99284

== ENCOUNTER 2017-06-23 09:17 | Observation (INO) | payer OTHER ==
[~2017-06-23] VITALS: Ht 188 cm; Wt 90.0 kg
[~2017-06-23 09:17] MED LIST changes: -BENTYL20 MG PO; +GABAPENTIN300 MG PO; -GABAPENTIN600 MG PO; -HUMALOG100 UNIT/1 SC; +NORVASC10 MG PO; -NORVASC5 MG PO
[2017-06-23 09:55] LABS: HEMATOCRIT 41.2 % (38.0-50.0); MCH 29.5 PG (29.0-34.0); MCHC 31.3 G/DL (30.0-36.0); MCV 94.3 FL (86-99); PLATELET COUNT 261 K/uL (156-360); RBC DIS.WIDTH-CV 13.2 % (11.8-14.6); RBC DIS.WIDTH-SD 46.2 % (39-53); RED BLOOD COUNT 4.37 M/uL (4.00-5.50); WHITE BLOOD COUNT 16.8 K/uL (4.1-10.2)
[2017-06-23 09:57] LABS: CHLORIDE 110 mEq/L (99-109); POTASSIUM 4.1 mEq/L (3.7-5.4); SODIUM 139 mEq/L (136-147)
[2017-06-23 09:59] LABS: GLUCOSE 322 mg/dL (70-99)
[2017-06-23 10:00] LABS: ANION GAP 12 MEQ/L (2-14)
[2017-06-23 10:01] LABS: TOTAL BILIRUBIN 0.3 mg/dL (0.0-1.0)
[2017-06-23 10:02] LABS: ALKALINE PHOSPHATASE 85 IU/L (3-129)
[2017-06-23 10:03] LABS: GFR ESTIMATE (CALCULATED) > 59 mL/min/
[2017-06-23 10:04] LABS: UREA NITROGEN (BUN) 26 mg/dL (9-23)
[2017-06-23 10:06] LABS: LIPASE 25 U/L (1.0-51.0)
[2017-06-23 13:33] LABS: ADD MIUA? YES; BILIRUBIN NEGATIVE; BLOOD NEGATIVE; COLOR YELLOW ((YELLOW)); GLUCOSE (STRIP) >=500; KETONES 5; LEUKOCYTES NEGATIVE; NITRITE NEGATIVE; PROTEIN (STRIP) 100; SPECIFIC GRAVITY 1.017 (1.000-1.030); UROBILINOGEN 0.2 MG/DL (0.2-1.0)
[2017-06-23 13:40] LABS: BACTERIA NONE SEEN /HPF; EPITHELIAL CELLS RARE /HPF; HYALINE CASTS 0-5 /LPF; MUCUS 1+ /LPF; RED BLOOD CELLS 0-5 /HPF (0-5); UCUL ADDED? NO; WHITE BLOOD CELLS 0-5 /HPF (0-5)
[2017-06-23] MEDS ORDERED: SERTRALINE HCL100 MG PO (14:14)
[2017-06-23 16:19] LABS: POINT-OF-CARE METER ID UU13113702
[2017-06-23 18:07] VITALS: BP 156/93
== END 2017-06-23 18:00 | disposition left against medical advice (07) ==
LOC: EME 09:17 → EDOF 11:28 → ENRESERV 11:33 → EDOF 11:43 → ENRESERV 15:55 → EDOF 18:00
PROVIDERS: Internal Medicine
DX: R11.2 Nausea with vomiting, unspecified (principal); E11.43 Type 2 diabetes mellitus with diabetic autonomic (poly)neuropathy; K31.84 Gastroparesis; F12.10 Cannabis abuse, uncomplicated; D72.829 Elevated white blood cell count, unspecified; E11.65 Type 2 diabetes mellitus with hyperglycemia; N17.9 Acute kidney failure, unspecified; I12.9 Hypertensive chronic kidney disease with stage 1 through stage 4 chronic kidney disease, or unspecified chronic kidney disease; N18.3 Chronic kidney disease, stage 3 (moderate); E11.22 Type 2 diabetes mellitus with diabetic chronic kidney disease; E78.5 Hyperlipidemia, unspecified; K21.9 Gastro-esophageal reflux disease without esophagitis; F41.9 Anxiety disorder, unspecified; F32.9 Major depressive disorder, single episode, unspecified; I69.351 Hemiplegia and hemiparesis following cerebral infarction affecting right dominant side; I69.328 Other speech and language deficits following cerebral infarction; F17.200 Nicotine dependence, unspecified, uncomplicated; Z71.6 Tobacco abuse counseling; Z79.4 Long term (current) use of insulin; M19.90 Unspecified osteoarthritis, unspecified site
CPT/HCPCS: 80053; 81003; 82948; 83690; 85027; 87040; 99281; G0378; J1644; J2270; J2405; J2765; J7030

== ENCOUNTER 2017-07-10 23:46 | Emergency (ER) | payer OTHER ==
[~2017-07-10] VITALS: Ht 188 cm; Wt 86.6 kg
[~2017-07-10 23:46] MED LIST changes: -NORVASC10 MG PO; +NORVASC5 MG PO; +SERTRALINE HCL100 MG PO
[2017-07-11 01:17] LABS: CHLORIDE 107 mEq/L (99-109); POTASSIUM 3.7 mEq/L (3.7-5.4); SODIUM 139 mEq/L (136-147)
[2017-07-11 01:18] LABS: MAGNESIUM 1.6 mg/dL (1.3-2.7)
[2017-07-11 01:20] LABS: GLUCOSE 254 mg/dL (70-99)
[2017-07-11 01:21] LABS: ANION GAP 9 MEQ/L (2-14)
[2017-07-11 01:22] LABS: TOTAL BILIRUBIN 0.4 mg/dL (0.0-1.0)
[2017-07-11 01:23] LABS: ALKALINE PHOSPHATASE 56 IU/L (3-129)
[2017-07-11 01:24] LABS: GFR ESTIMATE (CALCULATED) > 59 mL/min/
[2017-07-11 01:25] LABS: UREA NITROGEN (BUN) 22 mg/dL (9-23)
[2017-07-11 01:27] LABS: CREATINE KINASE 57 IU/L (1-294); LIPASE 98 U/L (1.0-51.0); TOTAL CK 57 IU/L (1-294)
[2017-07-11 01:33] LABS: CK-MB 1.9 ng/mL (0.0-4.9)
[2017-07-11 01:36] LABS: HEMATOCRIT 35.8 % (38.0-50.0); MCH 29.6 PG (29.0-34.0); MCHC 32.1 G/DL (30.0-36.0); MCV 92.3 FL (86-99); RBC DIS.WIDTH-CV 13.2 % (11.8-14.6); RBC DIS.WIDTH-SD 45.1 % (39-53); RED BLOOD COUNT 3.88 M/uL (4.00-5.50); WHITE BLOOD COUNT 10.7 K/uL (4.1-10.2)
[2017-07-11 01:41] LABS: MEAN PLAT.VOLUME 10.7 uM^3 (9.0-12.4); PLAT.SUFFICIENCY DECREASED
[2017-07-11 01:42] LABS: PLATELET COUNT 164 K/uL (156-360)
[2017-07-11 02:57] VITALS: BP 134/78
== END 2017-07-11 02:58 | disposition home or self-care (01) ==
LOC: EME 23:46
PROVIDERS: Emergency Medicine
DX: R10.84 Generalized abdominal pain (principal); R51 Headache; G89.29 Other chronic pain; K59.00 Constipation, unspecified; R74.8 Abnormal levels of other serum enzymes; R11.2 Nausea with vomiting, unspecified; I10 Essential (primary) hypertension; Z86.73 Personal history of transient ischemic attack (TIA), and cerebral infarction without residual deficits; E11.9 Type 2 diabetes mellitus without complications; Z79.4 Long term (current) use of insulin; Z79.02 Long term (current) use of antithrombotics/antiplatelets; F17.200 Nicotine dependence, unspecified, uncomplicated
CPT/HCPCS: 80053; 81003; 82550; 82553; 83690; 83735; 84100; 85027; 99281; 99284; J2765; J3010

== ENCOUNTER 2017-07-11 23:39 | Observation (INO) | payer OTHER ==
[~2017-07-11] VITALS: Ht 188 cm; Wt 84.5 kg
[2017-07-12 00:53] LABS: HEMATOCRIT 36.9 % (38.0-50.0); MCH 29.6 PG (29.0-34.0); MCHC 32.2 G/DL (30.0-36.0); MCV 91.8 FL (86-99); PLATELET COUNT 186 K/uL (156-360); RBC DIS.WIDTH-SD 44.1 % (39-53); RED BLOOD COUNT 4.02 M/uL (4.00-5.50); WHITE BLOOD COUNT 12.8 K/uL (4.1-10.2)
[2017-07-12 00:59] LABS: INTER. NORMALIZED RATIO 1.1
[2017-07-12 01:02] LABS: CHLORIDE 106 mEq/L (99-109); POTASSIUM 3.9 mEq/L (3.7-5.4); PTT 27.9 SEC (25-37); SODIUM 142 mEq/L (136-147)
[2017-07-12 01:04] LABS: GLUCOSE 257 mg/dL (70-99)
[2017-07-12 01:05] LABS: ANION GAP 11 MEQ/L (2-14)
[2017-07-12 01:06] LABS: TOTAL BILIRUBIN 0.3 mg/dL (0.0-1.0)
[2017-07-12 01:07] LABS: ALKALINE PHOSPHATASE 67 IU/L (3-129)
[2017-07-12 01:08] LABS: GFR ESTIMATE (CALCULATED) > 59 mL/min/
[2017-07-12 01:09] LABS: UREA NITROGEN (BUN) 23 mg/dL (9-23)
[2017-07-12 01:11] LABS: LIPASE 19 U/L (1.0-51.0)
[2017-07-12 04:19] LABS: POINT-OF-CARE METER ID UU13113702
[2017-07-12 05:29] LABS: SERUM ETHYL ALCOHOL < 10 mg/dL
[2017-07-12 05:48] VITALS: BP 166/95
[2017-07-12 06:31] LABS: POINT-OF-CARE METER ID UU13113700
[2017-07-12 08:50] VITALS: BP 163/98
[2017-07-12 09:08] LABS: HEMATOCRIT 38.1 % (38.0-50.0); MCV 92.9 FL (86-99)
[2017-07-12 10:17] LABS: POINT-OF-CARE METER ID UU13113700
[2017-07-12 11:11] VITALS: BP 164/88
[2017-07-12 14:11] LABS: POINT-OF-CARE METER ID UU13113700
[2017-07-12 14:57] VITALS: BP 167/93
[2017-07-12 18:15] LABS: POINT-OF-CARE METER ID UU13113700
[2017-07-12 19:59] LABS: HEMATOCRIT 35.6 % (38.0-50.0); MCV 94.4 FL (86-99)
[2017-07-12 20:00] VITALS: BP 134/87
[2017-07-12 22:32] LABS: POINT-OF-CARE METER ID UU13113831
[2017-07-12 23:48] VITALS: BP 126/74
[2017-07-13 02:46] LABS: POINT-OF-CARE METER ID UU13113831
[2017-07-13 04:12] VITALS: BP 129/89
[2017-07-13 05:32] LABS: BASOPHIL COUNT 0.1 K/uL (0-0.1); EOSINOPHIL (%) 1.9 % (0-5); EOSINOPHIL COUNT 0.2 K/uL (0-0.3); HEMATOCRIT 37.5 % (38.0-50.0); IMMATURE GRANULOCYTE (%) 0.3 % (0.0-0.7); INSTRUMENT ABS NEUTROPHIL CT 5.8 K/uL; LYMPHOCYTE COUNT 4.6 K/uL (1.0-2.8); MCH 29.5 PG (29.0-34.0); MCHC 31.5 G/DL (30.0-36.0); MCV 93.8 FL (86-99); MEAN PLAT.VOLUME 10.8 uM^3 (9.0-12.4); MONOCYTE (%) 6.7 % (3-12); MONOCYTE COUNT 0.8 K/uL (0-0.8); NEUTROPHIL (%) 50.8 % (45-76); NEUTROPHIL COUNT 5.8 K/uL (1.8-6.4); PLATELET COUNT 175 K/uL (156-360); RBC DIS.WIDTH-CV 13.1 % (11.8-14.6); RBC DIS.WIDTH-SD 45.3 % (39-53); WHITE BLOOD COUNT 11.5 K/uL (4.1-10.2)
[2017-07-13 06:00] LABS: ANION GAP 7 MEQ/L (2-14); CHLORIDE 112 MEQ/L (99-109); GFR ESTIMATE (CALCULATED) > 59 mL/min/; POTASSIUM 3.8 MEQ/L (3.7-5.4); SAMPLE HEMOLYSIS CHECK 0; SAMPLE ICTERIC CHECK 0; SAMPLE LIPEMIA CHECK 0; SODIUM 144 MEQ/L (136-147); UREA NITROGEN (BUN) 15 mg/dL (9-23)
[2017-07-13 06:19] LABS: GLUCOSE 54 mg/dL (70-99)
[2017-07-13 06:44] LABS: POINT-OF-CARE METER ID UU13113831
[2017-07-13 06:49] LABS: POINT-OF-CARE METER ID UU13113700
[2017-07-13 07:30] LABS: POINT-OF-CARE METER ID UU13113700
[2017-07-13 07:50] VITALS: BP 185/104
[2017-07-13 08:16] LABS: POINT-OF-CARE METER ID UU14162513
[2017-07-13 10:50] VITALS: BP 155/101
[2017-07-13 11:38] VITALS: BP 164/98
[2017-07-13 12:38] LABS: POINT-OF-CARE METER ID UU13113700
[2017-07-13] MEDS ORDERED: HYDROCHLOROTHIA25 MG PO (13:58)
== END 2017-07-13 14:23 | disposition home or self-care (01) ==
LOC: EME 23:39 → EDOF 07-12 04:21 → 5WEST 07-12 04:21 → ENRESERV 07-12 04:22 → 5WEST 07-12 05:28
PROVIDERS: Emergency Medicine; Hospitalist; Internal Medicine; Physician Assistant Medical
DX: R11.2 Nausea with vomiting, unspecified (principal); E11.43 Type 2 diabetes mellitus with diabetic autonomic (poly)neuropathy; K31.84 Gastroparesis; G89.29 Other chronic pain; R10.13 Epigastric pain; E11.65 Type 2 diabetes mellitus with hyperglycemia; E11.40 Type 2 diabetes mellitus with diabetic neuropathy, unspecified; E11.22 Type 2 diabetes mellitus with diabetic chronic kidney disease; I12.9 Hypertensive chronic kidney disease with stage 1 through stage 4 chronic kidney disease, or unspecified chronic kidney disease; N18.9 Chronic kidney disease, unspecified; D72.829 Elevated white blood cell count, unspecified; Z86.73 Personal history of transient ischemic attack (TIA), and cerebral infarction without residual deficits; G43.909 Migraine, unspecified, not intractable, without status migrainosus; E78.5 Hyperlipidemia, unspecified; F32.9 Major depressive disorder, single episode, unspecified; F41.9 Anxiety disorder, unspecified; F17.210 Nicotine dependence, cigarettes, uncomplicated; F12.90 Cannabis use, unspecified, uncomplicated
CPT/HCPCS: 74177; 80048; 80053; 80306 90; 81003; 82948; 83690; 85014; 85018; 85025; 85027; 85610; 85730; 86850; 86900; 86901; 99281; 99284; C9113; G0378; G0480; J0360; J1815; J1885; J2270; J2405; J2765; J3010; J3411; J7030; Q0167; S0028

== ENCOUNTER 2017-11-15 08:24 | Emergency (ER) | payer OTHER ==
[~2017-11-15] VITALS: Ht 188 cm; Wt 87.8 kg
[~2017-11-15 08:24] MED LIST changes: +HYDROCHLOROTHIA25 MG PO
[2017-11-15 08:26] VITALS: BP 180/80
== END 2017-11-15 12:38 | disposition left against medical advice (07) ==
LOC: EME 08:24
DX: R51 Headache (principal); Z53.21 Procedure and treatment not carried out due to patient leaving prior to being seen by health care provider

== ENCOUNTER 2018-03-12 13:23 | Emergency (ER) | payer OTHER ==
[~2018-03-12] VITALS: Ht 188 cm; Wt 90.0 kg
[2018-03-12 13:51] LABS: HEMATOCRIT 41.6 % (38.0-50.0); HEMOGLOBIN 13.9 G/DL (12.5-16.6); MCH 31.6 PG (29.0-34.0); MCHC 33.4 G/DL (30.0-36.0); MCV 94.5 FL (86-99); PLATELET COUNT 159 K/uL (156-360); RBC DIS.WIDTH-CV 13.4 % (11.8-14.6); RBC DIS.WIDTH-SD 47.7 % (39-53); WHITE BLOOD COUNT 13.3 K/uL (4.1-10.2)
[2018-03-12 14:06] LABS: ALBUMIN 3.9 g/dL (3.2-4.8)
[2018-03-12 14:07] LABS: CHLORIDE 105 mEq/L (99-109); POTASSIUM 4.5 mEq/L (3.7-5.4); SODIUM 141 mEq/L (136-147)
[2018-03-12 14:09] LABS: GLUCOSE 220 mg/dL (70-99); TOTAL PROTEIN 7.3 g/dL (6.4-8.3)
[2018-03-12 14:11] LABS: TOTAL BILIRUBIN 0.5 mg/dL (0.0-1.0)
[2018-03-12 14:12] LABS: ALKALINE PHOSPHATASE 71 IU/L (3-129)
[2018-03-12 14:13] LABS: CREATININE 2.5 mg/dL (0.6-1.3); GFR ESTIMATE (CALCULATED) 36 mL/min/ (58.99-99999)
[2018-03-12 14:14] LABS: AST (GOT) 16 IU/L (2-34); UREA NITROGEN (BUN) 30 mg/dL (9-23)
[2018-03-12 14:16] LABS: ALT (GPT) 11 IU/L (3-49); LIPASE 15 U/L (1.0-51.0)
[2018-03-12 14:55] LABS: TROP-I INTERPRETATION NEGATIVE; TROPONIN-I 0.03 ng/mL (0.0-0.30)
[2018-03-12 16:40] VITALS: BP 124/66
== END 2018-03-12 16:40 | disposition home or self-care (01) ==
LOC: EME 13:23
PROVIDERS: Emergency Medicine
DX: R11.2 Nausea with vomiting, unspecified (principal); R10.9 Unspecified abdominal pain; T40.7X5A Adverse effect of cannabis (derivatives), initial encounter; F12.90 Cannabis use, unspecified, uncomplicated; R94.31 Abnormal electrocardiogram [ECG] [EKG]; I10 Essential (primary) hypertension; K31.84 Gastroparesis; K21.9 Gastro-esophageal reflux disease without esophagitis; F32.9 Major depressive disorder, single episode, unspecified; F41.9 Anxiety disorder, unspecified; M19.90 Unspecified osteoarthritis, unspecified site; G43.909 Migraine, unspecified, not intractable, without status migrainosus; F17.200 Nicotine dependence, unspecified, uncomplicated; Z86.73 Personal history of transient ischemic attack (TIA), and cerebral infarction without residual deficits; Z88.8 Allergy status to other drugs, medicaments and biological substances
CPT/HCPCS: 80053; 81003; 82948; 83690; 84484; 85027; 93005; 99281; 99285; J1630; J7040

== ENCOUNTER 2018-03-14 09:38 | Emergency (ER) | payer OTHER ==
[~2018-03-14] VITALS: Ht 188 cm; Wt 87.0 kg
[2018-03-14 10:48] LABS: HEMATOCRIT 41.1 % (38.0-50.0); HEMOGLOBIN 13.8 G/DL (12.5-16.6); MCH 31.7 PG (29.0-34.0); MCHC 33.6 G/DL (30.0-36.0); MCV 94.3 FL (86-99); PLATELET COUNT 167 K/uL (156-360); RBC DIS.WIDTH-CV 13.6 % (11.8-14.6); RBC DIS.WIDTH-SD 47.5 % (39-53); RED BLOOD COUNT 4.36 M/uL (4.00-5.50); WHITE BLOOD COUNT 12.2 K/uL (4.1-10.2)
[2018-03-14 10:57] LABS: ALBUMIN 3.7 g/dL (3.2-4.8); CHLORIDE 107 mEq/L (99-109); POTASSIUM 4.5 mEq/L (3.7-5.4); SODIUM 141 mEq/L (136-147)
[2018-03-14 10:59] LABS: GLUCOSE 181 mg/dL (70-99)
[2018-03-14 11:01] LABS: TOTAL BILIRUBIN 0.4 mg/dL (0.0-1.0)
[2018-03-14 11:03] LABS: ALKALINE PHOSPHATASE 68 IU/L (3-129); CREATININE 2.4 mg/dL (0.6-1.3); GFR ESTIMATE (CALCULATED) 38 mL/min/ (58.99-99999)
[2018-03-14 11:04] LABS: UREA NITROGEN (BUN) 25 mg/dL (9-23)
[2018-03-14 11:05] LABS: AST (GOT) 15 IU/L (2-34)
[2018-03-14 11:06] LABS: ALT (GPT) 10 IU/L (3-49); LIPASE 18 U/L (1.0-51.0)
[2018-03-14 12:25] VITALS: BP 170/102
== END 2018-03-14 12:27 | disposition left against medical advice (07) ==
LOC: EME 09:38
PROVIDERS: Emergency Medicine
DX: G43.909 Migraine, unspecified, not intractable, without status migrainosus (principal); I10 Essential (primary) hypertension; K31.84 Gastroparesis; I69.351 Hemiplegia and hemiparesis following cerebral infarction affecting right dominant side; K21.9 Gastro-esophageal reflux disease without esophagitis; M19.90 Unspecified osteoarthritis, unspecified site; F41.9 Anxiety disorder, unspecified; F32.9 Major depressive disorder, single episode, unspecified; F17.200 Nicotine dependence, unspecified, uncomplicated; Z90.49 Acquired absence of other specified parts of digestive tract; Z88.8 Allergy status to other drugs, medicaments and biological substances
CPT/HCPCS: 70450; 80053; 83690; 85027; J1630; J2405; J7030